=== PATIENT | male | born 1990 | race African-American/Black ===

== ENCOUNTER 2023-02-16 11:21 | Emergency (ER) | payer MEDICAID, OTHER ==
[~2023-02-16] VITALS: Ht 190.5 cm; Wt 80.0 kg
[2023-02-16 11:35] VITALS: BP 119/73; PULSE 91; RESP 20; TEMP 98.3; O2SAT 99
[2023-02-16] MEDS ORDERED: KETOROLAC 60MG/2ML VIAL IM ONE (12:15)
[2023-02-16] MEDS ORDERED: DOCU100T MT (12:53)
[2023-02-16] MEDS ORDERED: HYDR25SU37 RC (12:53)
== END 2023-02-16 13:36 | disposition home or self-care (01) ==
LOC: ER 11:27
DX: K64.9 Unspecified hemorrhoids (principal); K59.00 Constipation, unspecified; I10 Essential (primary) hypertension
CPT/HCPCS: 99283; 96372; J1885

== ENCOUNTER 2023-12-19 07:14 | Emergency (ER) | payer MEDICAID ==
[~2023-12-19] VITALS: Ht 182.9 cm; Wt 87.0 kg
[~2023-12-19 07:14] MED LIST: DOCU100T MT; HYDR25SU37 RC
[2023-12-19 07:16] VITALS: BP 125/78; PULSE 89; RESP 16; TEMP 98.5; O2SAT 98
[2023-12-19] MEDS: LIDOCAINE HCL/PF 1% 10 MG/ML 5ML VIAL INFIL ONE (07:30)
[2023-12-19] MEDS: TETANUS, DIPHTHERIA, PERTUSSIS VAC/PF 0.5ML (>10YR OLD) IM ONE (08:48)
[2023-12-19] MEDS: BACITRACIN 14GM TUBE TOP ONE (09:15)
== END 2023-12-19 10:53 | disposition home or self-care (01) ==
LOC: ER 07:14
DX: S81.812A Laceration without foreign body, left lower leg, initial encounter (principal); S51.012A Laceration without foreign body of left elbow, initial encounter; W06.XXXA Fall from bed, initial encounter; Y93.89 Activity, other specified; Y92.89 Other specified places as the place of occurrence of the external cause; Y99.8 Other external cause status
CPT/HCPCS: 73090; 90715; 12002; 90471; 99283; J3490; Z7610

== ENCOUNTER 2023-12-27 14:34 | Emergency (ER) | payer MEDICAID ==
[~2023-12-27] VITALS: Ht 188 cm; Wt 99.0 kg
[2023-12-27 14:39] VITALS: BP 113/72; PULSE 90; RESP 20; TEMP 98.2; O2SAT 100
== END 2023-12-27 18:46 | disposition home or self-care (01) ==
LOC: ER 14:59
DX: T14.8XXD Other injury of unspecified body region, subsequent encounter (principal); F41.9 Anxiety disorder, unspecified; F32.A Depression, unspecified; X58.XXXD Exposure to other specified factors, subsequent encounter
CPT/HCPCS: 99281

== ENCOUNTER 2024-09-02 14:37 | Emergency (ER) | payer MEDICAID ==
[~2024-09-02] VITALS: Ht 185.4 cm; Wt 102.0 kg
[2024-09-02 15:04] VITALS: O2SAT 96
[2024-09-02] MEDS: KETOROLAC 30MG/ML VIAL IM ONE (17:35)
[2024-09-02] MEDS ORDERED: IBUP-2028 MT (18:07)
[2024-09-02] MEDS ORDERED: LIDO700A15 TP (18:07)
[2024-09-02 18:15] VITALS: BP 126/75; PULSE 82; RESP 16; TEMP 36.9; O2SAT 96
== END 2024-09-02 18:20 | disposition home or self-care (01) ==
LOC: ER 14:37
DX: M25.519 Pain in unspecified shoulder (principal); F41.9 Anxiety disorder, unspecified; F32.A Depression, unspecified; Z79.899 Other long term (current) drug therapy; W22.8XXA Striking against or struck by other objects, initial encounter; Y93.89 Activity, other specified; Y92.89 Other specified places as the place of occurrence of the external cause; Y99.8 Other external cause status
CPT/HCPCS: 99283; 96372; J1885